=== PATIENT | female | born 1975 | race Caucasian/White ===

== ENCOUNTER 2016-09-11 10:43 | Day surgery (SDC) | payer BC ==
[~2016-09-11] VITALS: Ht 165.1 cm; Wt 94.8 kg
[~2016-09-11 10:43] MED LIST: ADVIL200 MG PO; ALLEGRA ALLERG180 MG PO; BENADRYL25 MG PO; CYMBALTA60 MG PO; DEXILANT60 MG PO; HYDROCHLOROTHIA25 MG PO; K-DUR20 MEQ PO; KLONOPIN0.5 M1 PO; MAGNESIUM OXID500 MG PO; MIRAPEX ER0.375 MG PO; MOBIC15 MG PO; SYNTHROID25 MCG PO; VITAMIN B-121000 MCG PO; VYVANSE50 MG PO
[2016-09-11 11:27] VITALS: BP 125/75
[2016-09-11 12:24] LABS: METH RESISTANT S AUREUS PCR NEGATIVE (NEGATIVE)
[2016-09-11 12:25] LABS: PROBE CHECK PASS; SPECIMEN PROCESSING CONTROL PASS
[2016-09-11 14:14] VITALS: BP 129/71
[2016-09-11 15:30] VITALS: BP 115/71
== END 2016-09-11 15:39 | disposition home or self-care (01) ==
LOC: SDC 10:43
PROVIDERS: Obstetrics & Gynecology
PROC: 0UBC7ZX Excision of Cervix, Via Natural or Artificial Opening, Diagnostic (ICD-10-PCS; principal; 2016-09-11)
DX: N87.1 Moderate cervical dysplasia (principal); F41.8 Other specified anxiety disorders; Z98.84 Bariatric surgery status; Z80.8 Family history of malignant neoplasm of other organs or systems; Z82.49 Family history of ischemic heart disease and other diseases of the circulatory system; J45.909 Unspecified asthma, uncomplicated; E03.9 Hypothyroidism, unspecified; K21.9 Gastro-esophageal reflux disease without esophagitis
CPT/HCPCS: 87641; 88305; 93005; J1100; J1885; J2405